=== PATIENT | female | born 1980 | race Caucasian/White ===

== ENCOUNTER 2017-12-22 20:15 | Emergency (ER) | payer OTHER ==
[~2017-12-22] VITALS: Ht 154.9 cm; Wt 94.8 kg
[2017-12-22 20:20] VITALS: BP 143/93
[2017-12-22 22:12] VITALS: BP 132/69
== END 2017-12-22 22:12 | disposition home or self-care (01) ==
LOC: MED 20:15
DX: S93.402A Sprain of unspecified ligament of left ankle, initial encounter (principal); X58.XXXA Exposure to other specified factors, initial encounter; Y93.89 Activity, other specified; Y92.89 Other specified places as the place of occurrence of the external cause; Y99.8 Other external cause status
CPT/HCPCS: 73610; 99284; Q0092